=== PATIENT | male | born 1955 | race Caucasian/White ===

== ENCOUNTER 2018-10-10 08:51 | Day surgery (SDC) | payer BC, OTHER ==
[2018-10-10] MEDS ORDERED: PROPOFOL 500 MG/50 ML EMU IV ONE (10:16)
[2018-10-10 11:06] VITALS: RESP 18
[2018-10-10 11:34] VITALS: BP 128/74; PULSE 59; TEMP 97.6; O2SAT 93
== END 2018-10-10 12:00 | disposition home or self-care (01) | DRG 951 ==
LOC: SURG 08:51
PROVIDERS: ATTEND Surgery
DX: Z12.11 Encounter for screening for malignant neoplasm of colon (principal); K62.5 Hemorrhage of anus and rectum; K57.32 Diverticulitis of large intestine without perforation or abscess without bleeding
CPT/HCPCS: J2704